=== PATIENT | female | born 1980 | race Native Hawaiian/Other Pacific Islander ===

== ENCOUNTER 2018-06-23 14:58 | Emergency (ER) | payer OTHER ==
[~2018-06-23] VITALS: Ht 162.6 cm; Wt 60.3 kg
[2018-06-23 15:05] VITALS: TEMP 98.1
[2018-06-23 15:49] LABS: PLATELET COUNT 322 K/uL (152-353)
[2018-06-23 16:03] LABS: POTASSIUM 4.4 mmol/L (3.6-5.2)
[2018-06-23 18:15] VITALS: BP 130/88
== END 2018-06-23 18:15 | disposition other institution (70) ==
LOC: ED 14:58
PROVIDERS: Emergency Medicine
DX: F19.10 Other psychoactive substance abuse, uncomplicated (principal); R00.1 Bradycardia, unspecified
CPT/HCPCS: 36415; 80053; 80307; 80320; 80329; 81000; 81025; 82550; 84484; 85027; 93005; 99283